=== PATIENT | female | born 1960 | race African-American/Black ===

== ENCOUNTER 2024-07-14 16:19 | Emergency (ER) | payer OTHER ==
[~2024-07-14] VITALS: Ht 165.1 cm; Wt 77.0 kg
[2024-07-14 16:23] VITALS: BP 124/80; PULSE 91; RESP 16; TEMP 36.8; O2SAT 100
[2024-07-14] MEDS: LIDOCAINE 5% PATCH TOP SCH (18:45)
[2024-07-14] MEDS: KETOROLAC 30MG/ML VIAL IM ONE (18:45)
[2024-07-14] MEDS ORDERED: LIDO700A30 TP (20:04)
[2024-07-14] MEDS ORDERED: IBUP-2029 MT (20:04)
== END 2024-07-14 20:22 | disposition home or self-care (01) ==
LOC: ER 16:19
DX: S22.060A Wedge compression fracture of T7-T8 vertebra, initial encounter for closed fracture (principal); E11.9 Type 2 diabetes mellitus without complications; E78.00 Pure hypercholesterolemia, unspecified; I10 Essential (primary) hypertension; Z98.890 Other specified postprocedural states; Z79.899 Other long term (current) drug therapy; V43.52XA Car driver injured in collision with other type car in traffic accident, initial encounter; Y93.89 Activity, other specified; Y92.89 Other specified places as the place of occurrence of the external cause; Y99.8 Other external cause status
CPT/HCPCS: 99285; 70450; 72070; 72100; 73030; 72125; 96372; J1885